=== PATIENT | female | born 1990 | race Caucasian/White ===

== ENCOUNTER 2018-07-10 16:51 | Inpatient (IN) | payer MEDICAID ==
[2018-07-10] MEDS ORDERED: Sodium Chloride 0.9% 2.5 ML Syringe FLUSH PRN (18:17)
[2018-07-10] MEDS ORDERED: Citric Acid/Sodium Citrate Solution 30 ML Cup PO ONE (18:17)
[2018-07-10] MEDS ORDERED: Sodium Chloride 0.9% 10 ML Syringe FLUSH PRN (18:17)
[2018-07-10] MEDS ORDERED: Butorphanol 1 MG/ML SDV IVPUSH ONE (18:26)
[2018-07-10] MEDS ORDERED: Oxytocin/0.9 % Sodium Chloride 30 UNIT/500 ML BAG IV SCH (18:30)
[2018-07-10] MEDS: Lactated Ringers 1,000 ML IV SCH ×2 (18:45→20:06)
[2018-07-10] MEDS ORDERED: Terbutaline 1 MG/ML SDV ONE (19:04)
[2018-07-10] MEDS ORDERED: Phenylephrine 1% 10 MG/ML SDV ONE (19:21)
[2018-07-10] MEDS ORDERED: Oxytocin 10 Units/1 ML SDV ONE ×2 (19:42→22:37)
[2018-07-10] MEDS ORDERED: ceFAZolin/Dextrose,Iso-Osmotic 2 GM/50 ML Duplex Bag IV ONE (19:43)
--- NOTE | 2018-07-10 20:05 | PCM.PREANE ---
Preanesthetic Assessment - Anesthesia/Transfusion/Family Hx Anesthesia History: No Prior Anesthesia Family History of Anesthesia Reaction: No Transfusion History: No Prior Transfusion(s) - Review of Systems General: No Symptoms Pulmonary: No Symptoms Cardiovascular: No Symptoms Gastrointestinal: No Symptoms Neurological: No Symptoms Other: Reports: None - Physical Assessment NPO Status Date: 07/10/18 (1000 solids 1630 water) Height: 1.6 m Weight: 74.389 kg ASA Class: 2 Mental Status: Alert & Oriented x3 Airway Class: Mallampati = 2 Dentition: Reports: Normal Dentition Thyro-Mental Finger Breadths: 3 Mouth Opening Finger Breadths: 3 - Lab Values: Laboratory Last Values WBC 10.03 K/uL (4.0-11.0) 07/10/18 18:36 RBC 3.78 M/uL (4.30-5.90) L 07/10/18 18:36 Hgb 12.0 g/dL (12.0-16.0) 07/10/18 18:36 Hct 35.1 % (36.0-46.0) L 07/10/18 18:36 MCV 92.9 fL (80.0-98.0) 07/10/18 18:36 MCH 31.7 pg (27.0-32.0) 07/10/18 18:36 MCHC 34.2 g/dL (31.0-37.0) 07/10/18 18:36 RDW Std Deviation 47.0 fl (28.0-62.0) 07/10/18 18:36 RDW Coeff of Yvonne 14 % (11.0-15.0) 07/10/18 18:36 Plt Count 228 K/uL (150-400) 07/10/18 18:36 MPV 11.40 fL (7.40-12.00) 07/10/18 18:36 Nucleated RBC % 0.0 /100WBC 07/10/18 18:36 Nucleated RBCs # 0 K/uL 07/10/18 18:36 Blood Type O POSITIVE 07/10/18 18:36 Antibody Screen NEGATIVE 07/10/18 18:36 - Allergies Allergies/Adverse Reactions: Allergies Allergy/AdvReac Type Severity Reaction Status Date / Time No Known Allergies Allergy Verified 07/10/18 17:38 - Acknowledgements Anesthesia Type Planned: Spinal Pt an Appropriate Candidate for the Planned Anesthesia: Yes Alternatives and Risks of Anesthesia Discussed w Pt/Guardian: Yes Pt/Guardian Understands and Agrees with Anesthesia Plan: Yes Additional Comments: Patient denies any medical problems and does not take any medications or smoke or use alcohol. Patient served as translator interpreter and spinal anesthesia explained to patient and she verbalized understanding and asked if she would be awake for this procedure. Both patient and deny any further questions. 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 Smoking Status *Q: Never Smoker Second Hand Smoke Exposure: No Recreational Drug Use History: No - HOME MEDS Home Medications: Home Meds Pnv No.95/Ferrous Fum/Folic AC [ Caplet] 1 tab PO DAILY 07/10/18 [ History] - CURRENT (IN HOUSE) MEDS Current Meds: Current Medications Oxytocin/Sodium Chloride (Oxytocin 30 Unit/500 Ml-Ns) 30 unit in 500 mls @ 250 mls/hr IV TITRATE RONALD Lactated Ringer's (Ringers, Lactated) 1,000 mls @ 500 mls/hr IV BOLUS RONALD Last Admin: 07/10/18 18:45 Dose: 500 mls/hr Sodium Chloride (Saline Flush) 10 ml FLUSH ASDIRECTED PRN PRN Reason: Keep Vein Open Sodium Chloride (Saline Flush) 2.5 ml FLUSH ASDIRECTED PRN PRN Reason: Keep Vein Open Discontinued Medications Butorphanol Tartrate (Stadol) 1 mg IVPUSH ONETIME ONE Stop: 07/10/18 18:27 Last Admin: 07/10/18 18:44 Dose: 1 mg Cefazolin Sodium/Dextrose (Ancef) Confirm Administered Dose 2 gm IV .STK-MED ONE Stop: 07/10/18 19:44 Citric Acid/Sodium Citrate (Bicitra Solution) 30 ml PO ONETIME ONE Stop: 07/10/18 18:18 Oxytocin (Pitocin) Confirm Administered Dose 20 unit .ROUTE .STK-MED ONE Stop: 07/10/18 19:43 Phenylephrine HCl (Felix-Synephrine) Confirm Administered Dose 10 mg .ROUTE .STK- MED ONE Stop: 07/10/18 19:22 Terbutaline Sulfate (Brethine) Confirm Administered Dose 1 mg .ROUTE .STK-MED ONE Stop: 07/10/18 19:05 Last Admin: 07/10/18 19:09 Dose: 0.25 mg
[2018-07-10] MEDS ORDERED: Butorphanol 1 MG/ML SDV IVPUSH PRN (20:22)
[2018-07-10] MEDS: Terbutaline 1 MG/ML SDV SUBCUT SCH (20:45)
[2018-07-10] MEDS ORDERED: Morphine PF 10 MG/10 ML SDV ONE (21:02)
[2018-07-10] MEDS ORDERED: Citric Acid/Sodium Citrate Solution 30 ML Cup ONE (21:43)
--- NOTE | 2018-07-10 21:44 | PCM.LDHP ---
L&D History of Present Illness - General Date of Service: 07/10/18 Admit Problem/Dx: Patient Status Order with Admit Dx/Problem 07/10/18 16:54 Patient Status [ADT] Routine 07/10/18 18:18 Patient Status [ADT] Routine Admission Diagnosis/Problem Admission Diagnosis/Problem Source of Information: Patient History Limitations: Reports: No Limitations - History of Present Illness Pain Score: 8 Improves with: Reports: None Worsens with: Reports: None Associated Symptoms: Reports: N - Related Data Allergies/Adverse Reactions: Allergies Allergy/AdvReac Type Severity Reaction Status Date / Time No Known Allergies Allergy Verified 07/10/18 17:38 Home Medications: Home Meds Pnv No.95/Ferrous Fum/Folic AC [ Caplet] 1 tab PO DAILY 07/10/18 [ History] Past Medical History - Past Health History Medical/Surgical History: Denies 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: Social & Family History - Family History Family Medical History: Noncontributory - Tobacco Use Smoking Status *Q: Never Smoker Second Hand Smoke Exposure: No - Caffeine Use Caffeine Use: Reports: None - Recreational Drug Use Recreational Drug Use: No H&P Review of Systems - Review of Systems: Review Of Systems: See Below General: Reports: No Symptoms HEENT: Reports: No Symptoms Pulmonary: Reports: No Symptoms Cardiovascular: Reports: No Symptoms Gastrointestinal: Reports: No Symptoms Genitourinary: Reports: No Symptoms Musculoskeletal: Reports: No Symptoms Skin: Reports: No Symptoms Psychiatric: Reports: No Symptoms Neurological: Reports: No Symptoms Hematologic/Lymphatic: Reports: No Symptoms Immunologic: Reports: No Symptoms L&D Exam - Exam Exam: See Below - Vital Signs Weight: 74.389 kg - OB Specific Fundal Height In cm: 39 Contraction Intensity: Mild to Moderate Movement: Active Heart Tones: Present Presentation: Vertex - Key Score Key Score Cervix Position: Anterior Key Score Consistency: Soft Key Score Effacement: 51-70% Key Score Dilation: 1-2 cm Key Score 's Station: -3 Key Score Total: 7 - Exam General: Alert, Oriented HEENT: PERRLA, Conjunctiva Clear, EACs Clear, EOMI, Hearing Intact, Mucosa Moist & [place], Nares Patent, Normal Nasal Septum, Posterior Pharynx Clear, TMs Clear Neck: Supple, Trachea Midline Lungs: Clear to Auscultation, Normal Respiratory Effort Cardiovascular: Regular Rate, Regular Rhythm GI/Abdominal Exam: Normal Bowel Sounds, Soft, Non-Tender, No Organomegaly, No Distention, No Abnormal Bruit, No Mass, Pelvis Stable Rectal Exam: Normal Exam, Normal Rectal Tone Genitourinary: Normal external exam, Normal bimanual exam, Normal speculum exam Back Exam: Normal Inspection, Full Range of Motion Extremities: Normal Inspection, Normal Range of Motion, Non-Tender, No Pedal Edema, Normal Capillary Refill Skin: Warm, Dry, Intact Neurological: Cranial Nerves Intact, Reflexes Equal Bilateral Psychiatric: Alert, Normal Affect, Normal Mood - Patient Data Lab Results Last 24 hrs: Laboratory Results - last 24 hr 07/10/18 07/10/18 Range/Units 18:36 18:36 WBC 10.03 (4.0-11.0) K/uL RBC 3.78 L (4.30-5.90) M/uL Hgb 12.0 (12.0-16.0) g/dL Hct 35.1 L (36.0-46.0) % MCV 92.9 (80.0-98.0) fL MCH 31.7 (27.0-32.0) pg MCHC 34.2 (31.0-37.0) g/dL RDW Std Deviation 47.0 (28.0-62.0) fl RDW Coeff of Yvonne 14 (11.0-15.0) % Plt Count 228 (150-400) K/uL MPV 11.40 (7.40-12.00) fL Nucleated RBC % 0.0 /100WBC Nucleated RBCs # 0 K/uL Blood Type O POSITIVE Antibody Screen NEGATIVE Result Diagrams: 07/10/18 18:36 Problem List Initiated/Reviewed/Updated: Yes Orders Last 24hrs: Active Orders 24 hr Category Date Time Status Patient Status [ADT] Routine ADT 07/10/18 16:54 Active Patient Status [ADT] Routine ADT 07/10/18 18:18 Active Non Stress Test [RC] PER UNIT ROUTINE Care 07/10/18 17:25 Active Non Stress Test [RC] PER UNIT ROUTINE Care 07/10/18 18:18 Active Notify Provider Vital Signs [RC] PRN Care 07/10/18 18:21 Active Procedure Site Prep Instruct [RC] ASDIRECTED Care 07/10/18 18:18 Active Up ad [place] [RC] ASDIRECTED Care 07/10/18 17:25 Active Up ad [place] [RC] ASDIRECTED Care 07/10/18 18:18 Active Vaginal Exam [RC] Click to Edit Care 07/10/18 17:25 Active Verify Patient Consent Obtain [RC] ASDIRECTED Care 07/10/18 18:18 Active Vital Signs [RC] PER UNIT ROUTINE Care 07/10/18 17:25 Active Vital Signs [RC] PER UNIT ROUTINE Care 07/10/18 18:18 Active Butorphanol [Stadol] Med 07/10/18 20:22 Active 1 mg IVPUSH Q1H PRN Lactated Ringers [Ringers, Lactated] 1,000 ml Med 07/10/18 18:30 Active IV BOLUS Oxytocin/0.9 % Sodium Chloride [Oxytocin 30 Unit/500 ML Med 07/10/18 18:30 Active -NS] 30 unit in 500 ml IV TITRATE Sodium Chloride 0.9% [Saline Flush] Med 07/10/18 18:17 Active 10 ml FLUSH ASDIRECTED PRN Sodium Chloride 0.9% [Saline Flush] Med 07/10/18 18:17 Active 2.5 ml FLUSH ASDIRECTED PRN Terbutaline [Brethine] Med 07/10/18 20:30 Active 0.25 mg SUBCUT Q30M Peripheral IV Insertion Adult [OM.PC] Routine Oth 07/10/18 18:18 Ordered Schedule Procedure [COMM] Per Unit Routine Oth 07/10/18 18:18 Ordered Resuscitation Status Routine Resus Stat 07/10/18 17:25 Ordered Medication Orders Butorphanol Tartrate (Stadol) 1 mg IVPUSH Q1H PRN PRN Reason: Pain Oxytocin/Sodium Chloride (Oxytocin 30 Unit/500 Ml-Ns) 30 unit in 500 mls @ 250 mls/hr IV TITRATE RONALD Lactated Ringer's (Ringers, Lactated) 1,000 mls @ 500 mls/hr IV BOLUS RONALD Last Admin: 07/10/18 20:06 Dose: 500 mls/hr Infusion: 07/10/18 20:06 Dose: 500 mls/hr Admin: 07/10/18 18:45 Dose: 500 mls/hr Sodium Chloride (Saline Flush) 10 ml FLUSH ASDIRECTED PRN PRN Reason: Keep Vein Open Sodium Chloride (Saline Flush) 2.5 ml FLUSH ASDIRECTED PRN PRN Reason: Keep Vein Open Terbutaline Sulfate (Brethine) 0.25 mg SUBCUT Q30M RONALD Last Admin: 07/10/18 20:45 Dose: 0.25 mg
[2018-07-10] MEDS ORDERED: HYDROmorphone 2 MG/ML SDV IVPUSH ONE (22:24)
[2018-07-10] MEDS ORDERED: fentaNYL 100 MCG/2 ML SDV IVPUSH PRN (22:24)
[2018-07-10] MEDS ORDERED: Nalbuphine 10 MG/1 ML Vial IVPUSH PRN (22:24)
[2018-07-10] MEDS ORDERED: Octyl 2-Cyanoacrylate 1 Tube ONE (22:35)
[2018-07-10] MEDS ORDERED: Bisacodyl 10 MG Supp RECTAL PRN (22:38)
[2018-07-10] MEDS ORDERED: Lanolin 100% Cream 7 GM Tube TOP PRN (22:38)
[2018-07-10] MEDS ORDERED: diphenhydrAMINE 50 MG/ML SDV IVPUSH PRN (22:38)
[2018-07-10] MEDS ORDERED: Ondansetron 4 MG/2 ML SDV IVPUSH PRN (22:38)
[2018-07-10] MEDS ORDERED: Ibuprofen 800 MG Tab PO PRN (22:38)
[2018-07-10] MEDS ORDERED: Acetaminophen/oxyCODONE 325-5 MG Tab PO PRN ×2 (22:38)
--- NOTE | 2018-07-10 22:42 | PCM.OPNOTE ---
- General Post-Op/Procedure Note Date of Surgery/Procedure: 07/10/18 Operative Procedure(s): Primary C/section. Pre Op Diagnosis: IUP 39+wks. Post-Op Diagnosis: Same Anesthesia Technique: Spinal Primary Surgeon: Jesse Saab EBL in mLs: 600 Complications: None Condition: Good
[2018-07-10] MEDS ORDERED: Lactated Ringers 1,000 ML IV SCH (22:45)
[2018-07-10] MEDS: Ketorolac 30 MG/ML SDV IVPUSH SCH (22:45)
--- NOTE | 2018-07-10 23:07 | PCM.POSTAN ---
POST ANESTHESIA ASSESSMENT - MENTAL STATUS Mental Status: Alert, Oriented - RESPIRATORY Respiratory Status: Respiratory Rate WNL, Airway Patent, O2 Saturation Stable - CARDIOVASCULAR CV Status: Pulse Rate WNL, Blood Pressure Stable - GASTROINTESTINAL GI Status: No Symptoms - POST OP HYDRATION Hydration Status: Adequate & Stable
[2018-07-11] MEDS: Lactated Ringers 1,000 ML IV SCH
--- NOTE | 2018-07-11 02:49 | OR ---
SURGEON: Jesse Saab MD DATE OF PROCEDURE: PREOPERATIVE DIAGNOSIS: Intrauterine of 39 plus weeks. POSTOPERATIVE DIAGNOSIS: Intrauterine of 39 plus weeks. OPERATION PERFORMED: Primary low-transverse section. SUPPORT TEAM ASSOC: OR tech. ANESTHESIA: Spinal. Ms. Candelaria Lemon and Dr. Anaya. ESTIMATED BLOOD LOSS: 600 mL. COMPLICATIONS: None. STRIPPER SOFT PLASTIC: Dr. Escoto. FINDINGS: Normal uterus, tubes, and ovaries. Male fetus. score reported to be 6 and 9. The weight is not available. This patient is 27. She had previous normal spontaneous vaginal delivery complicated by severe and multiple vaginal laceration because of macrosomia. The patient was told by her previous doctor she should have a section in her next delivery. The patient has declined vaginal , and she elected to have a primary section. PROCEDURE IN DETAIL: The patient was brought to the OR, properly identified, and after adequate level of spinal anesthesia, the patient was prepped and draped in sterile fashion as usual. Low-transverse Pfannenstiel skin incision was done. Hi fascia and rectus fascia were opened in the direction of the incision. The 2 recti muscles were , and peritoneal cavity was entered. Bladder flap was raised in the usual manner and then the bladder pushed away from the operative field. Low- transverse uterine incision was done, extended manually with the hand. Fetus was in the vertex position, delivered without any problem, handed to Dr. Escoto who is the java web engineer on-call. The baby cried immediately. Later on, the score was reported to be 6 and 9. The placenta delivered spontaneous, complete, and intact and then repair of the lower uterine segment was done with 2-0 Vicryl continuous interlocking in 2 layers. Reperitonealization done with 3- 0 Vicryl continuous and then peritoneal cavity evacuated completely from all blood and blood clot and closed with 3-0 Vicryl continuous. The rectus fascia was closed with #1 PDS continuous. The Hi fascia with 3-0 Vicryl continuous. Skin closed with skin clips, Insorb, and Dermabond. Instrument and sponge count was correct. The patient tolerated the procedure well and went to recovery room in stable general condition. PRIMITIVO / MUKESH /[id number]
[2018-07-11] MEDS: Ketorolac 30 MG/ML SDV IVPUSH SCH ×4 (04:52→23:29)
[2018-07-11] MEDS ORDERED: Ibuprofen 800 MG Tab PO PRN (05:00)
[2018-07-11] MEDS: Terbutaline 1 MG/ML SDV SUBCUT SCH ×5 (06:45→06:56)
--- NOTE | 2018-07-11 07:42 | PCM48HPAN ---
Post Anesthesia Note - EVALUATION WITHIN 48HRS OF ANESTHETIC Vital Signs in Normal Range: Yes Patient Participated in Evaluation: Yes Respiratory Function Stable: Yes Airway Patent: Yes Cardiovascular Function Stable: Yes Hydration Status Stable: Yes Pain Control Satisfactory: Yes Nausea and Vomiting Control Satisfactory: Yes Mental Status Recovered: Yes Resp Rate: 15 - COMMENTS/OBSERVATIONS Free Text/Narrative:: Patient's states she had a good night and has been comfortable. Patient denies any pain through language interpretation with .
[2018-07-11] MEDS: Docusate Sodium 100 MG Cap PO SCH ×2 (11:01→21:49)
--- NOTE | 2018-07-11 12:48 | PCM.PNPP ---
- General Info Date of Service: 07/11/18 Functional Status: Reports: Pain Controlled - Review of Systems General: Reports: No Symptoms HEENT: Reports: No Symptoms Pulmonary: Reports: No Symptoms Cardiovascular: Reports: No Symptoms Gastrointestinal: Reports: No Symptoms Genitourinary: Reports: No Symptoms Musculoskeletal: Reports: No Symptoms Skin: Reports: No Symptoms Neurological: Reports: No Symptoms Psychiatric: Reports: No Symptoms - General Info Date of Service: 07/11/18 - Patient Data Vital Signs - Most Recent: Last Vital Signs Temp 36.7 C 07/11/18 06:00 Pulse 74 07/11/18 06:00 Resp 17 07/11/18 11:00 BP 98/52 L 07/11/18 06:00 Pulse Ox 100 07/11/18 11:00 Weight - Most Recent: 74.389 kg I&O - Last 24 Hours: Intake & Output 07/10/18 07/11/18 07/11/18 22:59 06:59 14:59 Intake Total 2250 Output Total 350 1900 600 Balance -350 350 -600 Lab Results - Last 24 Hours: Laboratory Results - last 24 hr 07/10/18 07/10/18 07/11/18 Range/Units 18:36 18:36 04:50 WBC 10.03 (4.0-11.0) K/uL RBC 3.78 L (4.30-5.90) M/uL Hgb 12.0 9.5 L (12.0-16.0) g/dL Hct 35.1 L 29.1 L (36.0-46.0) % MCV 92.9 (80.0-98.0) fL MCH 31.7 (27.0-32.0) pg MCHC 34.2 (31.0-37.0) g/dL RDW Std Deviation 47.0 (28.0-62.0) fl RDW Coeff of Yvonne 14 (11.0-15.0) % Plt Count 228 (150-400) K/uL MPV 11.40 (7.40-12.00) fL Nucleated RBC % 0.0 /100WBC Nucleated RBCs # 0 K/uL Blood Type O POSITIVE Antibody Screen NEGATIVE Med Orders - Current: Current Medications Bisacodyl (Dulcolax) 10 mg RECTAL ONETIME PRN PRN Reason: Constipation Butorphanol Tartrate (Stadol) 1 mg IVPUSH Q1H PRN PRN Reason: Pain Diphenhydramine HCl (Benadryl) 25 mg IVPUSH Q6H PRN PRN Reason: Itching or Nausea Last Admin: 07/11/18 02:00 Dose: 25 mg Docusate Sodium (Colace) 100 mg PO BID [facility] Last Admin: 07/11/18 11:01 Dose: 100 mg Emollient Ointment (Lansinoh Hpa) 0 gm TOP ASDIRECTED PRN PRN Reason: Sore Nipples Fentanyl (Sublimaze) 50 mcg IVPUSH Q5M PRN PRN Reason: Pain (severe 7-10) Stop: 07/11/18 22:24 Oxytocin/Sodium Chloride (Oxytocin 30 Unit/500 Ml-Ns) 30 unit in 500 mls @ 250 mls/hr IV TITRATE [facility] Lactated Ringer's (Ringers, Lactated) 1,000 mls @ 500 mls/hr IV BOLUS [facility] Last Admin: 07/11/18 00:00 Dose: 500 mls/hr Lactated Ringer's (Ringers, Lactated) 1,000 mls @ 125 mls/hr IV ASDIRECTED [facility] Ibuprofen (Motrin) 800 mg PO Q8H PRN PRN Reason: mild pain or fever Ketorolac Tromethamine (Toradol) 30 mg IVPUSH Q6H [facility] Stop: 07/11/18 22:46 Last Admin: 07/11/18 11:01 Dose: 30 mg Nalbuphine HCl (Nubain) 2.5 mg IVPUSH Q3H PRN PRN Reason: Pruritis Stop: 07/11/18 22:25 Ondansetron HCl (Zofran) 4 mg IVPUSH Q4H PRN PRN Reason: Nausea/Vomiting Oxycodone/Acetaminophen (Percocet 325-5 Mg) 1 tab PO Q4H PRN PRN Reason: Pain (moderate 4-6) Oxycodone/Acetaminophen (Percocet 325-5 Mg) 2 tab PO Q4H PRN PRN Reason: Pain (moderate 4-6) Sodium Chloride (Saline Flush) 10 ml FLUSH ASDIRECTED PRN PRN Reason: Keep Vein Open Sodium Chloride (Saline Flush) 2.5 ml FLUSH ASDIRECTED PRN PRN Reason: Keep Vein Open Discontinued Medications Butorphanol Tartrate (Stadol) 1 mg IVPUSH ONETIME ONE Stop: 07/10/18 18:27 Last Admin: 07/10/18 18:44 Dose: 1 mg Cefazolin Sodium/Dextrose (Ancef) Confirm Administered Dose 2 gm IV .STK-MED ONE Stop: 07/10/18 19:44 Citric Acid/Sodium Citrate (Bicitra Solution) 30 ml PO ONETIME ONE Stop: 07/10/18 18:18 Last Admin: 07/10/18 21:44 Dose: 30 ml Citric Acid/Sodium Citrate (Bicitra Solution) Confirm Administered Dose 30 ml .ROUTE .STK-MED ONE Stop: 07/10/18 21:44 Last Admin: 07/10/18 22:06 Dose: Not Given Hydromorphone HCl (Dilaudid) 2 mg IVPUSH ONETIME ONE Stop: 07/10/18 22:25 Ibuprofen (Motrin) 800 mg PO Q8H PRN PRN Reason: mild pain or fever Morphine Sulfate (Duramorph Pf) Confirm Administered Dose 10 mg .ROUTE .STK-MED ONE Stop: 07/10/18 21:03 Octyl Cyanoacrylate (Dermabond Advance) Confirm Administered Dose 1 applic .ROUTE .STK-MED ONE Stop: 07/10/18 22:36 Oxytocin (Pitocin) Confirm Administered Dose 20 unit .ROUTE .STK-MED ONE Stop: 07/10/18 19:43 Oxytocin (Pitocin) Confirm Administered Dose 20 unit .ROUTE .STK-MED ONE Stop: 07/10/18 22:38 Phenylephrine HCl (Felix-Synephrine) Confirm Administered Dose 10 mg .ROUTE .STK- MED ONE Stop: 07/10/18 19:22 Terbutaline Sulfate (Brethine) Confirm Administered Dose 1 mg .ROUTE .STK-MED ONE Stop: 07/10/18 19:05 Last Admin: 07/10/18 19:09 Dose: 0.25 mg Terbutaline Sulfate (Brethine) 0.25 mg SUBCUT Q30M RONALD Last Admin: 07/11/18 06:56 Dose: Not Given - Interaction Infant Disposition, : in Room with Family Infant Interaction: Holding Infant Infant Feeding: Attempted ; Nursed Fair/Poor Support Person: - Recovery Exam Fundal Tone: Firm, Firms with Massage Fundal Level: 1 Fingerbreadths Below Umbilicus Fundal Placement: Midline Lochia Amount: Small Lochia Color: Rubra/Red Perineum Description: Intact, Minimal Bruising/Swelling Episiotomy/Laceration: Approximated Bladder Status: Indwelling Catheter in Place Urinary Elimination: Indwelling Catheter - Exam General: Alert, Oriented HEENT: Pupils Equal Neck: Supple Lungs: Clear to Auscultation, Normal Respiratory Effort Cardiovascular: Regular Rate, Regular Rhythm GI/Abdominal Exam: Normal Bowel Sounds, Soft, Non-Tender, No Organomegaly, No Distention, No Abnormal Bruit, No Mass, Pelvis Stable Extremities: Normal Inspection, Normal Range of Motion, Non-Tender, No Pedal Edema, Normal Capillary Refill Skin: Warm, Dry, Intact Wound/Incisions: Healing Well Neurological: No New Focal Deficit Psy/Mental Status: Alert, Normal Affect, Normal Mood - Problem List Review Problem List Initiated/Reviewed/Updated: Yes - My Orders Last 24 Hours: My Active Orders 07/10/18 17:25 Vital Signs [RC] PER UNIT ROUTINE Resuscitation Status Routine 07/10/18 18:17 Sodium Chloride 0.9% [Saline Flush] 10 ml FLUSH ASDIRECTED PRN Sodium Chloride 0.9% [Saline Flush] 2.5 ml FLUSH ASDIRECTED PRN 07/10/18 18:18 Up ad [place] [RC] ASDIRECTED Verify Patient Consent Obtain [RC] ASDIRECTED Vital Signs [RC] PER UNIT ROUTINE Peripheral IV Insertion Adult [OM.PC] Routine Schedule Procedure [COMM] Per Unit Routine 07/10/18 18:21 Notify Provider Vital Signs [RC] PRN 07/10/18 18:30 Lactated Ringers [Ringers, Lactated] 1,000 ml IV BOLUS Oxytocin/0.9 % Sodium Chloride [Oxytocin 30 Unit/500 ML-NS] 30 unit in 500 ml IV TITRATE 07/10/18 20:22 Butorphanol [Stadol] 1 mg IVPUSH Q1H PRN 07/10/18 22:38 Acetaminophen/oxyCODONE [Percocet 325-5 MG] 1 tab PO Q4H PRN Acetaminophen/oxyCODONE [Percocet 325-5 MG] 2 tab PO Q4H PRN Bisacodyl [Dulcolax] 10 mg RECTAL ONETIME PRN Lanolin [Lansinoh HPA] See Dose Instructions TOP ASDIRECTED PRN Ondansetron [Zofran] 4 mg IVPUSH Q4H PRN diphenhydrAMINE [Benadryl] 25 mg IVPUSH Q6H PRN 07/10/18 22:39 Patient Status [ADT] Routine Ambulate [RC] PER UNIT ROUTINE Antiembolic Devices [RC] PER UNIT ROUTINE Communication Order [RC] PER UNIT ROUTINE Communication Order [RC] PER UNIT ROUTINE Communication Order [RC] Per Unit Routine May Shower [RC] ASDIRECTED RT Incentive Spirometry [RC] Q2HWA Vital Signs [RC] PER UNIT ROUTINE Assess Lochia [WOMSER] Per Unit Routine Assess Uterine Involution [WOMSER] Per Unit Routine Breast Pump [WOMSER] Per Unit Routine Peripheral IV Discontinue [OM.PC] Routine Sequential Compression Device [OM.PC] Per Unit Routine 07/10/18 22:45 Ketorolac [Toradol] 30 mg IVPUSH Q6H Lactated Ringers [Ringers, Lactated] 1,000 ml IV ASDIRECTED 07/11/18 05:00 Ibuprofen [Motrin] 800 mg PO Q8H PRN 07/11/18 09:00 Docusate Sodium [Colace] 100 mg PO BID 07/11/18 Breakfast Regular Diet [DIET] - Assessment Assessment:: S/P c/section doing well. - Plan Plan:: Regular care . plan to send home in am.
[2018-07-12] MEDS: Docusate Sodium 100 MG Cap PO SCH (08:39)
--- NOTE | 2018-07-12 09:41 | PCM.DCSUM1 ---
Discharge Summary - Hospital Course Diagnosis: Stroke: No - Discharge Data Discharge Date: 07/12/18 Discharge Disposition: Home, Self-Care 01 Condition: Good - Patient Summary/Data Operative Procedure(s) Performed: Primary C/section. - Patient Instructions Diet: Usual Diet as Tolerated Activity: As Tolerated Driving: Do Not Drive Showering/Bathing: May Shower - Discharge Plan Home Medications: Home Meds Pnv No.95/Ferrous Fum/Folic AC [ Caplet] 1 tab PO DAILY 07/10/18 [ History] Referrals: [facility] [Outside] Jesse Saab MD [Primary Care Provider] - 07/24/18 3:00 pm - Discharge Summary/Plan Comment DC Time >30 min.: Yes - General Info Date of Service: 07/12/18 Functional Status: Reports: Pain Controlled - Review of Systems General: Reports: No Symptoms HEENT: Reports: No Symptoms Pulmonary: Reports: No Symptoms Cardiovascular: Reports: No Symptoms Gastrointestinal: Reports: No Symptoms Genitourinary: Reports: No Symptoms Musculoskeletal: Reports: No Symptoms Skin: Reports: No Symptoms Neurological: Reports: No Symptoms Psychiatric: Reports: No Symptoms - Patient Data Vitals - Most Recent: Last Vital Signs Temp 37.1 C 07/12/18 07:15 Pulse 84 07/12/18 07:15 Resp 17 07/12/18 07:15 BP 117/68 07/12/18 07:15 Pulse Ox 97 07/12/18 07:15 Weight - Most Recent: 74.389 kg Med Orders - Current: Current Medications Bisacodyl (Dulcolax) 10 mg RECTAL ONETIME PRN PRN Reason: Constipation Butorphanol Tartrate (Stadol) 1 mg IVPUSH Q1H PRN PRN Reason: Pain Diphenhydramine HCl (Benadryl) 25 mg IVPUSH Q6H PRN PRN Reason: Itching or Nausea Last Admin: 07/11/18 02:00 Dose: 25 mg Docusate Sodium (Colace) 100 mg PO BID RONALD Last Admin: 07/12/18 08:39 Dose: 100 mg Emollient Ointment (Lansinoh Hpa) 0 gm TOP ASDIRECTED PRN PRN Reason: Sore Nipples Oxytocin/Sodium Chloride (Oxytocin 30 Unit/500 Ml-Ns) 30 unit in 500 mls @ 250 mls/hr IV TITRATE RONALD Lactated Ringer's (Ringers, Lactated) 1,000 mls @ 500 mls/hr IV BOLUS RONALD Last Admin: 07/11/18 00:00 Dose: 500 mls/hr Lactated Ringer's (Ringers, Lactated) 1,000 mls @ 125 mls/hr IV ASDIRECTED RONALD Ibuprofen (Motrin) 800 mg PO Q8H PRN PRN Reason: mild pain or fever Last Admin: 07/12/18 08:39 Dose: 800 mg Ondansetron HCl (Zofran) 4 mg IVPUSH Q4H PRN PRN Reason: Nausea/Vomiting Oxycodone/Acetaminophen (Percocet 325-5 Mg) 1 tab PO Q4H PRN PRN Reason: Pain (moderate 4-6) Last Admin: 07/12/18 06:56 Dose: 1 tab Oxycodone/Acetaminophen (Percocet 325-5 Mg) 2 tab PO Q4H PRN PRN Reason: Pain (moderate 4-6) Sodium Chloride (Saline Flush) 10 ml FLUSH ASDIRECTED PRN PRN Reason: Keep Vein Open Sodium Chloride (Saline Flush) 2.5 ml FLUSH ASDIRECTED PRN PRN Reason: Keep Vein Open Discontinued Medications Butorphanol Tartrate (Stadol) 1 mg IVPUSH ONETIME ONE Stop: 07/10/18 18:27 Last Admin: 07/10/18 18:44 Dose: 1 mg Cefazolin Sodium/Dextrose (Ancef) Confirm Administered Dose 2 gm IV .STK-MED ONE Stop: 07/10/18 19:44 Citric Acid/Sodium Citrate (Bicitra Solution) 30 ml PO ONETIME ONE Stop: 07/10/18 18:18 Last Admin: 07/10/18 21:44 Dose: 30 ml Citric Acid/Sodium Citrate (Bicitra Solution) Confirm Administered Dose 30 ml .ROUTE .STK-MED ONE Stop: 07/10/18 21:44 Last Admin: 07/10/18 22:06 Dose: Not Given Fentanyl (Sublimaze) 50 mcg IVPUSH Q5M PRN PRN Reason: Pain (severe 7-10) Stop: 07/11/18 22:24 Hydromorphone HCl (Dilaudid) 2 mg IVPUSH ONETIME ONE Stop: 07/10/18 22:25 Ibuprofen (Motrin) 800 mg PO Q8H PRN PRN Reason: mild pain or fever Ketorolac Tromethamine (Toradol) 30 mg IVPUSH Q6H RONALD Stop: 07/11/18 22:46 Last Admin: 07/11/18 23:29 Dose: 30 mg Morphine Sulfate (Duramorph Pf) Confirm Administered Dose 10 mg .ROUTE .STK-MED ONE Stop: 07/10/18 21:03 Nalbuphine HCl (Nubain) 2.5 mg IVPUSH Q3H PRN PRN Reason: Pruritis Stop: 07/11/18 22:25 Octyl Cyanoacrylate (Dermabond Advance) Confirm Administered Dose 1 applic .ROUTE .STK-MED ONE Stop: 07/10/18 22:36 Oxytocin (Pitocin) Confirm Administered Dose 20 unit .ROUTE .STK-MED ONE Stop: 07/10/18 19:43 Oxytocin (Pitocin) Confirm Administered Dose 20 unit .ROUTE .STK-MED ONE Stop: 07/10/18 22:38 Phenylephrine HCl (Felix-Synephrine) Confirm Administered Dose 10 mg .ROUTE .STK- MED ONE Stop: 07/10/18 19:22 Terbutaline Sulfate (Brethine) Confirm Administered Dose 1 mg .ROUTE .STK-MED ONE Stop: 07/10/18 19:05 Last Admin: 07/10/18 19:09 Dose: 0.25 mg Terbutaline Sulfate (Brethine) 0.25 mg SUBCUT Q30M [facility] Last Admin: 07/11/18 06:56 Dose: Not Given - Exam General: Reports: Alert, Oriented HEENT: Reports: Pupils Equal, Pupils Reactive, EOMI, Mucous Membr. Moist/[place] Neck: Reports: Supple Lungs: Reports: Clear to Auscultation, Normal Respiratory Effort Cardiovascular: Reports: Regular Rate, Regular Rhythm GI/Abdominal Exam: Normal Bowel Sounds, Soft, Non-Tender, No Organomegaly, No Distention, No Abnormal Bruit, No Mass, Pelvis Stable (Female) Exam: Normal External Exam, Normal Speculum Exam, Normal Bimanual Exam Rectal (Female) Exam: Normal Exam, Normal Rectal Tone Back Exam: Reports: Normal Inspection, Full Range of Motion Extremities: Normal Inspection, Normal Range of Motion, Non-Tender, No Pedal Edema, Normal Capillary Refill Skin: Reports: Warm, Dry, Intact Wound/Incisions: Reports: Healing Well Neurological: Reports: No New Focal Deficit Psy/Mental Status: Reports: Alert, Normal Affect, Normal Mood
== END 2018-07-12 13:40 | disposition home or self-care (01) | DRG 788 ==
LOC: MW.OBCHECK 16:51 → MW.OB 16:52 → MW.OBCHECK 16:54 → OBSVTOIN 22:19 → MW.OB 22:20
PROVIDERS: ADMIT Obstetrics & Gynecology; ATTEND Obstetrics & Gynecology
PROC: 10D00Z1 Extraction of Products of Conception, Low, Open Approach (ICD-10-PCS; principal; 2018-07-10)
DX: O75.89 Other specified complications of labor and delivery (principal); Z3A.39 39 weeks gestation of pregnancy; Z37.0 Single live birth
CPT/HCPCS: 01961; 36415; 59025; 85014; 85018; 85027; 86850; 86900; 86901; A9270-GY; J0595; J0690; J1200; J1885; J2270; J2370; J2590; J3105; J7120

== ENCOUNTER 2024-07-24 05:14 | Inpatient (IN) | payer MEDICAID ==
[2024-07-24] MEDS: Lactated Ringers 1,000 ML IV SCH (05:30)
[2024-07-24] MEDS ORDERED: Citric Acid/Sodium Citrate Solution 30 ML Cup PO ONE (06:07)
[2024-07-24] MEDS ORDERED: Sodium Chloride 0.9% 20 ML SDV IV PRN (06:07)
[2024-07-24] MEDS ORDERED: Sodium Chloride 0.9% 10 ML Syringe FLUSH PRN (06:07)
[2024-07-24] MEDS ORDERED: Sodium Chloride 0.9% 2.5 ML Syringe FLUSH PRN (06:07)
[2024-07-24] MEDS ORDERED: Oxytocin/0.9 % Sodium Chloride 30 UNIT/500 ML BAG IV SCH (06:15)
[2024-07-24 06:28] LABS: HEMATOCRIT 35.8 % (37.0-47.0); HEMOGLOBIN 12.5 g/dL (12.0-16.0); MEAN CORPUSCULAR HEMOGLOBIN 32.3 pg (28.0-32.0); MEAN CORPUSCULAR HGB CONC 34.9 g/dL (32.0-36.0); MEAN CORPUSCULAR VOLUME 92.5 fL (83.0-99.0); MEAN PLATELET VOLUME 11.6 fL (9.4-12.3); PLATELET COUNT,PLT 160 K/uL (150-400); RED BLOOD CELL COUNT 3.87 M/uL (4.10-5.30); WHITE BLOOD CELL COUNT,WBC 7.96 K/uL (3.9-11.3)
[2024-07-24] MEDS ORDERED: Ropivacaine 0.5% 5 MG/ML 30 ML SDV ONE (07:03)
[2024-07-24] MEDS ORDERED: Dexamethasone 4 MG/ML 5 ML MDV ONE (07:03)
[2024-07-24] MEDS ORDERED: dexmedeTOMIDine HCl 200 MCG/2 ML SDV ONE (07:03)
[2024-07-24] MEDS ORDERED: ePHEDrine 50 MG/ML SDV ONE (07:03)
[2024-07-24] MEDS ORDERED: Phenylephrine 1% 10 MG/ML SDV ONE (07:03)
[2024-07-24] MEDS ORDERED: Oxytocin 10 Units/1 ML SDV ONE (07:03)
[2024-07-24] MEDS ORDERED: Calcium Chloride 10% 1 GM/10 ML Syringe ONE (07:03)
[2024-07-24] MEDS ORDERED: ceFAZolin 2 GM Vial ONE (07:03)
[2024-07-24] MEDS ORDERED: Ondansetron 4 MG/2 ML SDV ONE (07:03)
[2024-07-24] MEDS ORDERED: Tranexamic Acid 1,000 MG/10 ML Vial ONE (07:03)
[2024-07-24] MEDS ORDERED: fentaNYL 100 MCG/2 ML SDV ONE (07:04)
[2024-07-24] MEDS ORDERED: Morphine PF 10 MG/10 ML SDV ONE (07:04)
[2024-07-24] MEDS ORDERED: Morphine 2 MG/ML SYRINGE IVPUSH PRN (07:32)
[2024-07-24] MEDS ORDERED: Ondansetron 4 MG/2 ML SDV IVPUSH PRN ×2 (07:32→10:36)
[2024-07-24] MEDS ORDERED: HYDROmorphone 1 MG/ML Syringe IVPUSH PRN (07:32)
[2024-07-24] MEDS ORDERED: Naloxone 0.4 MG/ML SDV IVPUSH PRN ×2 (07:32→10:36)
[2024-07-24] MEDS ORDERED: Metoclopramide 10 MG/2 ML SDV IVPUSH PRN (07:32)
[2024-07-24] MEDS ORDERED: Albuterol 0.083% 2.5 MG/3 ML Neb Soln NEB PRN (07:32)
[2024-07-24] MEDS ORDERED: fentaNYL 50 MCG/ML SDV IVPUSH PRN (07:32)
[2024-07-24] MEDS ORDERED: Phenylephrine HCl In 0.9% NaCl 1 MG/10 ML Syringe IVPUSH PRN (07:32)
[2024-07-24] MEDS ORDERED: diphenhydrAMINE 50 MG/ML SDV IVPUSH PRN (10:36)
[2024-07-24] MEDS ORDERED: Acetaminophen/oxyCODONE 325-5 MG Tab PO PRN ×2 (10:36)
[2024-07-24] MEDS ORDERED: Oxytocin 10 Units/1 ML SDV IM PRN (10:36)
[2024-07-24] MEDS ORDERED: Methylergonovine 0.2 MG/1 ML Amp IM PRN (10:36)
[2024-07-24] MEDS ORDERED: Lanolin 100% Cream 7 GM Tube TOP PRN (10:36)
[2024-07-24] MEDS ORDERED: Misoprostol 200 MCG Tab RECTAL PRN (10:36)
[2024-07-24] MEDS ORDERED: Bisacodyl 10 MG Supp RECTAL PRN (10:36)
[2024-07-24] MEDS ORDERED: Lactated Ringers 1,000 ML IV SCH (10:45)
[2024-07-24] MEDS ORDERED: Acetaminophen 1,000 MG in Premix Bag 1 BAG IV SCH (11:00)
[2024-07-24] MEDS: Ketorolac 30 MG/ML SDV IVPUSH SCH (14:15)
[2024-07-24] MEDS: Acetaminophen 1,000 MG in Premix Bag 1 BAG IV SCH (14:25)
[2024-07-24] MEDS: Docusate Sodium 100 MG Cap PO SCH (21:27)
[2024-07-25 05:53] LABS: HEMATOCRIT 32.8 % (37.0-47.0)
[2024-07-25] MEDS ORDERED: Ibuprofen 800 MG Tab PO PRN (10:36)
== END 2024-07-25 18:45 | disposition home or self-care (01) | DRG 787 ==
LOC: MW.OB 05:14 → EDSTATUS 08:00 → MW.OB 17:49
PROVIDERS: ADMIT Obstetrics & Gynecology Obstetrics; ATTEND Obstetrics & Gynecology Obstetrics
PROC: 10D00Z1 Extraction of Products of Conception, Low, Open Approach (ICD-10-PCS; principal; 2024-07-24 08:00)
DX: O34.211 Maternal care for low transverse scar from previous cesarean delivery (principal); O99.354 Diseases of the nervous system complicating childbirth; O24.420 Gestational diabetes mellitus in childbirth, diet controlled; G43.909 Migraine, unspecified, not intractable, without status migrainosus; Z3A.39 39 weeks gestation of pregnancy; Z37.0 Single live birth
CPT/HCPCS: 01961; 36415; 64999; 85014; 85018; 85027; 86592; 86850; 86900; 86901; A9270-GY; J0131; J0690; J1100; J1885; J2274; J2371; J2405; J2590; J2795; J3010; J3490; J7120

== ENCOUNTER 2024-09-05 14:54 | Emergency (ER) | payer MEDICAID ==
[2024-09-05] MEDS: Ibuprofen 800 MG Tab PO STA (16:20)
[2024-09-05] MEDS: Acetaminophen 500 MG Tab PO STA (16:20)
== END 2024-09-05 19:01 | disposition home or self-care (01) ==
LOC: MW.ED 14:54
DX: J02.0 Streptococcal pharyngitis (principal); Z79.899 Other long term (current) drug therapy
CPT/HCPCS: 87428; 87651; 99284; A9270; 99283